=== PATIENT | male | born 1985 | race Caucasian/White ===

== ENCOUNTER 2019-11-13 11:29 | Emergency (ER) | payer OTHER, SELFPAY ==
--- NOTE | ~2019-11-13 | US_ITS ---
US scrotum doppler DATE: 11/13/2019 12:45 INDICATION: Left scrotal pain for one day TECHNIQUE: An color flow imaging and Doppler analysis of the scrotal contents COMPARISON: None FINDINGS: The testicles are symmetric and homogeneous in echotexture. There is symmetric blood flow t o the testicles on color flow Doppler analysis. No testicular mass lesion or torsion is evident. The epididymis is unremarkable bilaterally. No hydrocele or varicocele is demonstrated. IMPRESSION: No significant abnormality Reviewed, dictated and finalized at [facility] Reviewed, dictated and finalized at [facility]. IMPRESSION: No significant abnormality
[2019-11-13 11:43] VITALS: BP 121/82; PULSE 92; RESP 18; TEMP 36.6; O2SAT 99
[2019-11-13 13:07] LABS: Add Urine Microscopic? NO; Appearance Urine Clear (Clear); Bilirubin Urine Negative (Negative); Blood Urine Negative (Negative); Color Urine Yellow (Yellow); Glucose Urine UA Negative (Negative); Ketones Urine Negative (Negative); Leukocyte Esterase Ur Negative LEU/UL (Negative); Mucus Urine Rare /lpf; Nitrate Urine Negative (Negative); Protein Urine Negative (Negative); RBC Urine 0-2 /hpf (0-2); Specific Grav Ur 1.026 (1.001-1.035); Squamous Epithelial Cell Urine Rare /hpf (Few); Urobilinogen Urine Negative mg/dL (<2.0); WBC Urine 0-3 /hpf
[2019-11-13] MEDS: KETOROLAC (*BKC) 60 MG/2 ML VIAL IM (14:03)
--- NOTE | 2019-11-13 14:22 | ED.MALEGU ---
HPI - Male Genitourinary General Chief complaint: Urogenital-Male Stated complaint: L SCROTAL PAIN X1D Time Seen by Provider: 11/13/19 12:04 Source: patient Mode of arrival: ambulatory Limitations: no limitations History of Present Illness HPI Narrative: This is a 34-year-old male that presents emergency department for left testicular pain since yesterday. No known injury or trauma to the area. Reports he took some anti-inflammatories with little relief. Reports he has intermittently had pain on this side since his vasectomy. Patient had a vasectomy a year ago by Dr. Boyer. He has not followed up with him yet for this. Denies fever, abdominal pain, vomiting, dysuria or hematuria. Related Data Home Medications Medication Instructions Recorded Confirmed No Home Medications 11/13/19 11/13/19 Allergies Allergy/AdvReac Type Severity Reaction Status Date / Time No Known Allergies Allergy Verified 11/13/19 11:42 Review of Systems Review of Systems: Narrative: CONSTITUTIONAL: Denies fever GASTROINTESTINAL: Denies abdominal pain, nausea, vomiting GENITOURINARY: Denies dysuria or hematuria. All systems reviewed & are unremarkable except as noted in HPI and below PMFSH Past Medical History Medical History (Updated 11/13/19 @ 14:27 by Anju Powell PA-C) No active medical problems Social History Social History (Updated 11/13/19 @ 14:23 by Anju Powell PA-C) Substance use: never Gender identity (if verbalized by the patient): Male Exam Narrative: Exam Narrative: GENERAL: Well-appearing, well-nourished, and in no acute distress. HEAD: Normocephalic, atraumatic. EYES: EOMI. CHEST: Clear to auscultation. No respiratory distress. No wheezes rales or rhonchi HEART: Regular rate and rhythm. No murmur heard. Normal peripheral pulses. ABDOMEN: Soft, nontender, nondistended, normal active bowel sounds. EXTREMITIES: Normal range of motion. No edema. SKIN: Warm, dry, no rash. NEURO: No focal deficits. Alert and oriented x3. PSYCH: Normal mood and affect MALE GENITAL: Normal genitalia. No erythema or swelling of the testicles or scrotum. Left epididymis is mildly tender Course Consultations Consultation #1: poke with urology, Dr. Jones. Reports that this happens in about 5% of males after vasectomy. Patient is to take anti-inflammatories and warm baths as needed. Good scrotal support. He will follow-up with Dr. Boyer as needed. Date: 11/13/19 Time: 14:26 Vital Signs Vital signs: Vital Signs Temperature 97.9 F 11/13/19 11:43 Pulse Rate 92 11/13/19 11:43 Respiratory Rate 18 11/13/19 11:43 Blood Pressure 121/82 11/13/19 11:43 Pulse Oximetry 99 11/13/19 11:43 Temperature 97.9 F 11/13/19 11:43 Pulse Rate 92 11/13/19 11:43 Respiratory Rate 18 11/13/19 11:43 Blood Pressure 121/82 11/13/19 11:43 Pulse Oximetry 99 11/13/19 11:43 MDM - Male Genitourinary MDM Narrative Medical decision making narrative: Patient presents the emergency department for left testicular pain x1 day. Reports this is happened intermittently since his vasectomy 1 year ago. He is afebrile and nontoxic-appearing. Vitals are normal. Denies any abdominal pain, nausea or vomiting. UA is normal. Testicular/scrotal ultrasound is normal as well. Patient updated on case findings. Spoke with urology, Dr. Jones. Reports that this happens in about 5% of males after vasectomy. Patient is to take anti-inflammatories and warm baths as needed. Good scrotal support. He will follow-up with Dr. Boyer as needed. Patient is stable and felt appropriate for further outpatient evaluation. He was given warnings to return to the ER Lab Data Attestation: I reviewed the patient's lab results. Labs: Lab Results 11/13/19 11/13/19 Range/Units 12:51 12:51 Urine Color Yellow (Yellow) Urine Appearance Clear (Clear) Urine pH 5.0 (5.0-9.0) Ur Specific [place] 1.026 (1.001-1.
== END 2019-11-13 14:41 | disposition home or self-care (01) ==
PROVIDERS: Physician Assistant; Emergency Provider Emergency Medicine
DX: N50.812 Left testicular pain (principal)
CPT/HCPCS: 76870; 81003; 87491; 87591; 87661; 93976; 96372; 99284; J1885